=== PATIENT | female | born 1980 | race Hispanic/Latino ===

== ENCOUNTER 2018-04-15 01:34 | Emergency (ER) | payer OTHER, SELFPAY ==
[2018-04-15 02:23] LABS: Bilirubin Negative (Negative); Blood, Urine Trace (Negative); Clarity Clear (Clear); Glucose, Urine (Dipstick) Negative (Negative); Leukocyte Negative (Negative); Nitrite Negative (Negative); Protein, Urine (Dipstick) Negative (Neg-Trace); Urobilinogen 0.2 mg/dL (0.2-1.0)
[2018-04-15] MEDS ORDERED: Ketorolac Tromethamine 60 MG/2 ML VIAL ONE (02:26)
[2018-04-15] MEDS ORDERED: Ondansetron ODT 4 MG TAB ONE (02:26)
[2018-04-15] MEDS ORDERED: HYDROcodone/Acetaminophen 5/325 mg Tablet ONE (02:26)
[2018-04-15 02:27] LABS: Pregnancy Test - Urine (BHCG) Negative (Negative); Pregu Control Background? CLEAR/WHITE (CLR/WHITE); Pregu Control Bar Appear? YES (CONTROL BAR); Specific Gravity 1.025 (1.002-1.036); Specific Gravity, Urine 1.025 (1.002-1.036)
[2018-04-15 02:30] LABS: Bacteria/HPF None Seen HPF (None Seen); Squamous Epithelial 0-3 HPF (0-3); WBC/HPF 0-3 HPF (0-3)
--- NOTE | 2018-04-15 09:20 | CT ---
PRELIMINARY REPORT/[facility]/EMERGENTY AFTER-HOURS PROCEDURE CT Abdomen and Pelvis Without Intravenous Contrast CLINICAL HISTORY: 38 years old, female; Pain; Abdominal pain; Other: All over; Patient HX: Abdomen pain TECHNIQUE: Axial computed tomography images of the abdomen and pelvis without intravenous contrast. All CT scans at this facility use at least one of these dose optimization techniques: automated exposure control; mA and/or kV adjustment per patient size (includes targeted exams where dose is matched to clinical indication); or iterative reconstruction. COMPARISON: No relevant prior studies available. FINDINGS: Lung bases: No acute findings. No mass. No consolidation. ABDOMEN: Liver: Liver is enlarged at 20 cm and demonstrates diffuse fatty infiltration. No solid mass is ident ified. Gallbladder and bile ducts: Gallbladder has been removed. No ductal dilation. Pancreas: No acute findings. No ductal dilation. Spleen: No acute findings. No splenomegaly. Adrenals: No acute findings. No mass. Kidneys and ureters: No acute findings. No obstructing stones. No hydronephrosis. Stomach and bowel: No obstruction. No mucosal thickening. There is moderate colonic fecal retention. PELVIS: Appendix: No findings to suggest acute appendicitis. Bladder: No acute findings. No stones. Reproductive: Unremarkable as visualized. ABDOMEN and PELVIS: Intraperitoneal space: No acute findings. No free air. No significant fluid collection. Bones/joints: No acute fracture. No dislocation. Soft tissues: No acute findings. Vasculature: No acute findings. No abdominal aortic aneurysm. Lymph nodes: No acute findings. No enlarged lymph nodes. IMPRESSION: Appendix Fecal retention. No renal or ureteral stones. No hydronephrosis. Normal appendix. Cholecystectomy. Thank you for allowing us to participate in the care of your patient. Dictated and Authenticated by: Jl Shanks MD 04/15/2018 4:05 AM Central Time ([place] & [place]) FINAL REPORT CT ABDOMEN AND PELVIS WITHOUT CONTRAST: Date: 04/15/18 HISTORY: Abdominal pain. COMPARISON: CT abdomen/pelvis dated 09/23/13. FINDINGS: Lung bases are clear. No pericardial effusion. Poor visualization of a known left-sided hepatic mass. Prior cholecystectomy. There is gas within the common bile duct. No dilated loops of large or small bowel. No nephroureterol ithiasis or hydroureteronephrosis. No secondary evidence of recently passed stone. IMPRESSION: Findings and impression are concordant with the preliminary report by [facility]. POS: [facility]
== END 2018-04-15 04:25 | disposition home or self-care (01) ==
LOC: MADERS 01:34
DX: K59.00 Constipation, unspecified (principal)
CPT/HCPCS: 74176; 81003; 81015; 81025; 96372; J1885; Q0162

== ENCOUNTER 2020-12-14 20:16 | Emergency (ER) | payer OTHER ==
[2020-12-14] MEDS ORDERED: predniSONE 20 MG TAB ONE (20:38)
[2020-12-14] MEDS ORDERED: Albuterol Sulfate 2.5 mg/0.5 ml Neb ONE (20:49)
== END 2020-12-14 21:01 | disposition home or self-care (01) ==
LOC: MADERS 20:16
DX: J45.901 Unspecified asthma with (acute) exacerbation (principal)
CPT/HCPCS: J7512; J7611; J7620

== ENCOUNTER 2021-01-15 11:26 | Outpatient (CLI) | payer OTHER | END 2021-01-15 11:27 | disposition home or self-care (01) | LOC: MADRAD 11:26 | PROVIDERS: ATTEND Family Medicine | DX: J40 Bronchitis, not specified as acute or chronic (principal); Z87.09 Personal history of other diseases of the respiratory system | CPT/HCPCS: 71046 ==

== ENCOUNTER 2023-01-19 16:02 | Emergency (ER) | payer BC ==
[~2023-01-19 16:02] MED LIST: Iopamidol 370 76% 100 ML VIAL ONE
[2023-01-19 16:46] LABS: Bilirubin Moderate (Negative); Blood, Urine Negative (Negative); Clarity Clear (Clear); Glucose, Urine (Dipstick) Negative (Negative); Ketone, Urine > or equal to 80 mg/dL (Negative); Leukocyte Negative (Negative); Nitrite Negative (Negative); Protein, Urine (Dipstick) 30 mg/dL (Neg-Trace); Specific Gravity, Urine 1.028 (1.002-1.036)
[2023-01-19 16:50] LABS: Bacteria/HPF Rare-Few HPF (None Seen); Mucous/LPF 2+ LPF (<2+); RBC/HPF None Seen HPF (0-3); WBC/HPF 0-3 HPF (0-3)
[2023-01-19] MEDS ORDERED: Morphine 4 MG/ML VIAL ONE (16:51)
[2023-01-19 16:52] LABS: Pregnancy Test - Urine (BHCG) Negative (Negative); Pregu Control Background? CLEAR/WHITE (CLR/WHITE); Pregu Control Bar Appear? YES (CONTROL BAR); Specific Gravity 1.028 (1.002-1.036)
[2023-01-19] MEDS ORDERED: Sodium Chloride 0.9% 1,000 ML ONE (16:52)
[2023-01-19] MEDS ORDERED: Ondansetron PF 4 MG/2 ML Vial ONE (16:52)
[2023-01-19] MEDS ORDERED: Acetaminophen 500 MG TAB ONE (17:06)
[2023-01-19 17:26] LABS: ALT (SGPT) 44 U/L (8-55); AST (SGOT) 30 U/L (5-34); Alkaline Phosphatase 59 U/L (40-110); Anion Gap 14 mmol/L (10-20); BUN (Urea Nitrogen) 7 mg/dL (7.0-18.7); Calc. Creatinine Clearance 0 mL/min (70-130); Calcium 9.1 mg/dL (7.8-10.44); Carbon Dioxide 23 mmol/L (22-29); Chloride 102 mmol/L (98-107); Estimated GFR 112; Globulin 2.7 g/dL (2.4-3.5); Glucose 88 mg/dL (70-105); Lipase 4 U/L (8-78); Magnesium 1.8 mg/dL (1.6-2.6); Potassium 3.4 mmol/L (3.5-5.1); Protein, Total 6.7 g/dL (6.0-8.3); Sodium 136 mmol/L (136-145)
[2023-01-19] MEDS ORDERED: Sodium Chloride 0.9% 100 ML ONE (17:57)
[2023-01-19] MEDS ORDERED: Piperacillin/Tazobactam 4.5 GM VIAL ONE (17:57)
[2023-01-19 18:00] LABS: #Basophils 0.1 thou/uL (0.0-0.2); #Eosinphils 0.1 thou/uL (0.0-0.7); #Lymphocytes 2.6 thou/uL (1.20-3.40); #Monocytes 0.8 thou/uL (0.11-0.59); #Neutrophils 10.4 thou/uL (1.40-6.50); %Basophils 0.8 % (0.0-1.0); %Lymphocytes 18.3 % (21.0-51.0); %Monocytes 5.5 % (0.0-10.0); %Neutrophils 74.4 % (42.0-75.0); Hemoglobin 14.4 g/dL (12.0-16.0); Mean Corpuscular HGB CONC 33.3 g/dL (32.0-36.0); Mean Corpuscular Hemoglobin 30.1 pg (27.0-31.0); Mean Corpuscular Volume 90.4 fl (78.0-98.0); Mean Platelet Volume 10.8 fL (7.4-10.4); Platelet Count 187 10x3/uL (130-400); RBC Distribution Width 12.1 % (11.5-14.5); White Blood Cell (WBC) Count 13.9 10x3/uL (4.8-10.8)
== END 2023-01-19 19:21 | disposition home or self-care (01) ==
LOC: MADERS 16:02
DX: K57.32 Diverticulitis of large intestine without perforation or abscess without bleeding (principal); J45.909 Unspecified asthma, uncomplicated; Z79.899 Other long term (current) drug therapy
CPT/HCPCS: 74177; 80053; 81003; 81015; 81025; 83605; 83690; 83735; 85025; 87040; 96361; 96365; 96375; J2270; J2405; J2543; J3490; J7050; Q9967